=== PATIENT | female | born 2000 | race Caucasian/White ===

== ENCOUNTER 2022-08-22 09:35 | Emergency (ER) | payer MEDICAID ==
[2022-08-22 09:49] VITALS: BP 139/84
--- NOTE | 2022-08-22 10:12 | ED Physician Documentation ---
History of Present Illness - Stated complaint Stated Complaint: STYE - Chief complaint Chief Complaint: Heent - History obtained from History obtained from: Patient - History of Present Illness Pain level max: 1 Pain level now: 1 - Additonal information Additional information: Patient is a 22-year-old female who presents to the emergency department with swelling to the left upper eyelid. Started about 4 days ago. Nothing makes it better or worse. Has been using warm compresses without relief. Does not wear contacts. She did get a new mascara recently but has thrown it away. Review of Systems Constitutional: denies: Fever, Chills GI: denies: Vomiting : denies: Now [facility] PAST MEDICAL HISTORY - Past Medical History Past Medical History: No - Past Surgical History Past Surgical History: No - Present Medications Home Medications: Ambulatory Orders Medication Instructions Recorded Confirmed Ketotifen Fumarate [[place]away] 1 drops LEFTEYE Q8H PRN #10 ml 08/22/22 Polymyxin B/Trimeth Ophth Drop 1 drops LEFTEYE Q3H 7 Days #1 each 08/22/22 [Polytrim Ophth Drops] - Allergies Allergies/Adverse Reactions: Allergies Allergy/AdvReac Type Severity Reaction Status Date / Time metoclopramide [From Reglan] Allergy Unknown Verified 08/22/22 09:53 - Living Situation Living Situation: reports: With family Living Arrangement: reports: At home PD ED PE NORMAL - Vitals Vital signs reviewed: Yes - General General: Alert and oriented X 3, No acute distress - HEENT HEENT: Moist mucous membranes, Other (Mild edema and erythema to the left upper eyelid. No drainage. No crusting on the lid margins. No conjunctival injection.) - Derm Derm: Warm and dry - Neuro Neuro: Alert and oriented X 3 - Psych Psych: Normal mood, Normal affect Results - Vitals Vitals: Vital Signs - 24 hr 08/22/22 09:44 Temperature 36.9 C Heart Rate 79 Respiratory 14 Rate Blood Pressure 139/84 H O2 Saturation 100 Oxygen O2 Source Room air PD Medical Decision Making - ED course Complexity details: considered differential, d/w patient ED course: Patient with a blepharitis versus stye. We will place on antihistamine eyedrops and antibiotic eyedrops. She has not had any relief with warm compresses for 4 days. We will have her follow-up with her doctor for further care. Patient counseled regarding signs and symptoms for which I believe and urgent re- evaluation would be necessary. Patient with good understanding of and agreement to plan and is comfortable going home at this time This document was made in part using voice recognition software. While efforts are made to proofread this document, sound alike and grammatical errors may occur. Departure - Departure Disposition: Home, Self Care Clinical Impression: Sty Qualifiers: Laterality: left Eyelid: upper Qualified Code(s): H00.014 - Hordeolum externum left upper eyelid Blepharitis Qualifiers: Blepharitis type: unspecified type Laterality: left Eyelid: upper Qualified Code(s): H01.004 - Unspecified blepharitis left upper eyelid Condition: Good Instructions: ED Inflammation Eyelid, ED [place] Follow-Up: Your,doctor in 1 week [Other] Prescriptions: Ketotifen Fumarate [Alaway] 1 drops LEFTEYE Q8H PRN #10 ml PRN Reason: itching Polymyxin B/Trimeth Ophth Drop [Polytrim Ophth Drops] 1 drops LEFTEYE Q3H 7 Days #1 each Comments: Please follow-up with your doctor for further care. Return if you worsen. Your prescriptions were sent to [facility] in [place]. I would continue warm compresses as well. Discharge Date/Time: 08/22/22 10:18
== END 2022-08-22 10:18 | disposition home or self-care (01) ==
LOC: ED 09:35
DX: H00.014 Hordeolum externum left upper eyelid (principal); H01.004 Unspecified blepharitis left upper eyelid
CPT/HCPCS: 99281; 99283